=== PATIENT | male | born 1965 | race African-American/Black ===

== ENCOUNTER 2019-02-16 10:44 | Inpatient (IN) | payer OTHER ==
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
[2019-02-16] MEDS ORDERED: DICYCLOMINE HCL 10 MG CAPSULE PO PRN (13:50)
[2019-02-16] MEDS ORDERED: MAG HYDROX/AL HYDROX/SIMETH 30 ML UNIT-DOSE CUP PO PRN (13:50)
[2019-02-16] MEDS ORDERED: hydrOXYzine PAMOATE 25 MG CAPSULE (FP) PO PRN (13:50)
[2019-02-16] MEDS ORDERED: MAGNESIUM HYDROX 2400MG/30ML ORAL SUSPENSION 30 ML CUP PO PRN (13:50)
[2019-02-16] MEDS ORDERED: MENTHOL/PHENOL 1 EACH UD MM PRN (13:50)
[2019-02-16] MEDS ORDERED: ACETAMINOPHEN 325 MG TABLET (FP) PO PRN ×2 (13:50)
[2019-02-16] MEDS ORDERED: chlordiazePOXIDE HCL 25 MG CAPSULE PO PRN (13:50)
[2019-02-16] MEDS ORDERED: cloNIDine HCL 0.1 MG TABLET PO PRN (13:50)
[2019-02-16] MEDS ORDERED: NICOTINE POLACRILEX 4 MG GUM BUC PRN (13:50)
[2019-02-16] MEDS ORDERED: IBUPROFEN 400 MG TABLET (FP) PO PRN (13:50)
[2019-02-16] MEDS ORDERED: MAGNESIUM CITRATE 300 ML BOTTLE PO PRN (13:50)
[2019-02-16] MEDS ORDERED: BACLOFEN 10 MG TABLET (FP) PO PRN (13:50)
[2019-02-16] MEDS ORDERED: ONDANSETRON *ODT* 4 MG TABLET SL PRN (13:50)
[2019-02-16] MEDS ORDERED: ALBUTEROL SO4 8 GM HFA INHALER IH PRN (13:57)
[2019-02-16] MEDS ORDERED: chlordiazePOXIDE HCL 25 MG CAPSULE PO ONE (14:16)
[2019-02-16] MEDS ORDERED: METHADONE HCL 10 MG TABLET (FOR DETOX USE ONLY) PO ONE ×2 (14:20→23:00)
[2019-02-16 16:50] LABS: HEMATOCRIT 39.3 % (35.4-49); MCH 28.2 pg (25.7-33.7); MCHC 33.1 g/dl (32.0-35.9); MEAN CELL VOLUME 85.1 fl (80-96); MEAN PLT VOLUME 7.8 fl (7.5-11.1); PLATELET COUNT 280 K/MM3 (134-434); RBC 4.62 M/mm3 (4.00-5.60); RDW 15.5 % (11.9-15.9); WHITE BLOOD COUNT 7.6 K/mm3 (4.0-10.0)
[2019-02-16 16:52] LABS: ALBUMIN 3.8 g/dl (3.4-5.0); ALK PHOS 118 U/L (45-117); ANION GAP 7 MMOL/L (8-16); BILIRUBIN,TOTAL 0.3 mg/dL (0.2-1); BLOOD UREA NITROGEN 11 mg/dL (7-18); CALCIUM 9.6 mg/dL (8.5-10.1); CHLORIDE 99 mmol/L (98-107); CO2 32 mmol/L (21-32); CREATININE 0.7 mg/dL (0.55-1.3); GLUCOSE,RANDOM 101 mg/dL (74-106); POTASSIUM 4.1 mmol/L (3.5-5.1); SGOT/AST 29 U/L (15-37); SGPT/ALT 39 U/L (13-61); SODIUM 138 mmol/L (136-145); TOT PROT 7.8 g/dl (6.4-8.2)
[2019-02-16] MEDS: chlordiazePOXIDE HCL 25 MG CAPSULE PO SCH (22:54)
[2019-02-16] MEDS: GABAPENTIN 300 MG CAPSULE (FP) PO SCH (22:54)
[2019-02-16] MEDS: THIAMINE HCL 100 MG TABLET (FP) PO SCH (22:56)
[2019-02-17] MEDS: chlordiazePOXIDE HCL 25 MG CAPSULE PO SCH ×4 (06:00→22:49)
[2019-02-17] MEDS ORDERED: guaiFENesin/CODEINE 10 ML UNIT-DOSE CUPS PO PRN (07:47)
[2019-02-17] MEDS ORDERED: METHADONE HCL 10 MG TABLET (FOR DETOX USE ONLY) PO ONE (10:00)
[2019-02-17] MEDS: GABAPENTIN 300 MG CAPSULE (FP) PO SCH ×2 (10:09→22:49)
[2019-02-17] MEDS: PRENATAL VITAMINS W/ FOLIC ACID TABLET (FP) PO SCH (10:09)
[2019-02-17] MEDS: NICOTINE 21 MG/24 HOURS TOPICAL PATCH TD SCH (10:11)
--- NOTE | 2019-02-17 13:36 | PN ---
S CIWA - CIWA Score Nausea/Vomitin-No Nausea/No Vomiting Muscle Tremors: 4-Moderate,w/Arms Extend Anxiety: 4-Mod. Anxious/Guarded Agitation: 4-Moderately Restless Paroxysmal Sweats: 3 Orientation: 0-Oriented Tacttile Disturbances: 0-None Auditory Disturbances: 0-None Visual Disturbances: 0-None Headache: 0-None Present CIWA-Ar Total Score: 15 [facility] COWS - Scale Resting Pulse: 0= [place] 80 or Below Sweatin=Flushed/Facial Moisture Restless Observation: 1= Difficult to Sit Still Pupil Size: 0= Normal to Room Light Bone or Joint Aches: 2= Severe Diffuse Aches Runny Nose/ Eye Tearin= Runny Nose/Eyes GI Upset > 30mins: 0= None Tremor Observation of Outstretched Hands: 2= Slight Tremor Visible Yawning Observation: 2= >3x During Session Anxiety or Irritability: 2=Irritable/Anxious Goose Flesh Skin: 0=Smooth Skin COWS Score: 13 S Progress Note (SOAP) Subjective: anxiety body aches sweats shakes Objective: 02/17/19 13:36 Vital Signs Temperature 97.9 F 02/17/19 09:52 Pulse Rate 77 02/17/19 09:52 Respiratory Rate 21 H 02/17/19 09:52 Blood Pressure 137/64 02/17/19 09:52 O2 Sat by Pulse Oximetry (%) Laboratory Tests 02/16/19 02/16/19 02/16/19 14:40 14:40 14:40 WBC 7.6 RBC 4.62 Hgb 13.0 Hct 39.3 MCV 85.1 MCH 28.2 MCHC 33.1 RDW 15.5 Plt Count 280 MPV 7.8 Sodium 138 Potassium 4.1 Chloride 99 Carbon Dioxide 32 Anion Gap 7 L BUN 11 Creatinine 0.7 Creat Clearance w eGFR 117.52 Random Glucose 101 Calcium 9.6 Total Bilirubin 0.3 AST 29 ALT 39 Alkaline Phosphatase 118 H Total Protein 7.8 Albumin 3.8 RPR Titer Nonreactive aaox3 ambulating no acute distress Assessment: 02/17/19 13:36 withdrawal sx Plan: continue detox increase fluids
--- NOTE | 2019-02-17 15:21 | EKG ---
Test Reason : Blood Pressure : / mmHG Vent. Rate : 060 BPM Atrial Rate : 060 BPM P-R Int : 168 ms QRS Dur : 088 ms QT Int : 414 ms P-R-T Axes : 068 052 013 degrees QTc Int : 414 ms NORMAL SINUS RHYTHM NORMAL ECG NO PREVIOUS ECGS AVAILABLE Confirmed by SHAILA BUCHANAN MD ([id number]) on 02/17/2019 3:20:38 PM Referred By: Confirmed By:SHAILA BUCHANAN MD
[2019-02-17] MEDS ORDERED: guaiFENesin 200 MG/10 ML 10 ML UNIT-DOSE CUPS PO PRN (15:31)
[2019-02-17] MEDS: THIAMINE HCL 100 MG TABLET (FP) PO SCH (22:49)
[2019-02-17] MEDS: P-EPHED 60MG/TRIPROLIDI 2.5MG TABLET PO PRN (22:51)
[2019-02-18] MEDS: chlordiazePOXIDE HCL 25 MG CAPSULE PO SCH ×3 (06:26→17:40)
[2019-02-18] MEDS: P-EPHED 60MG/TRIPROLIDI 2.5MG TABLET PO PRN (06:28)
[2019-02-18] MEDS ORDERED: METHADONE HCL 10 MG TABLET (FOR DETOX USE ONLY) PO ONE (10:00)
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
[2019-02-18] MEDS: GABAPENTIN 300 MG CAPSULE (FP) PO SCH ×2 (11:23→22:21)
[2019-02-18] MEDS: PRENATAL VITAMINS W/ FOLIC ACID TABLET (FP) PO SCH (11:24)
--- NOTE | 2019-02-18 12:33 | PN ---
[facility] CIWA - CIWA Score Nausea/Vomitin-No Nausea/No Vomiting Muscle Tremors: 1-None Visible, but [place] Anxiety: 4-Mod. Anxious/Guarded Agitation: 4-Moderately Restless Paroxysmal Sweats: 2 Orientation: 0-Oriented Tacttile Disturbances: 0-None Auditory Disturbances: 0-None Visual Disturbances: 0-None Headache: 0-None Present CIWA-Ar Total Score: 11 [facility] COWS - Scale Resting Pulse: 0= [place] 80 or Below Sweatin= Chills/Flushing Restless Observation: 1= Difficult to Sit Still Pupil Size: 1= Pupils >than Normal Bone or Joint Aches: 1= Mild Discomfort Runny Nose/ Eye Tearin= None GI Upset > 30mins: 0= None Tremor Observation of Outstretched Hands: 2= Slight Tremor Visible Yawning Observation: 0= None Anxiety or Irritability: 2=Irritable/Anxious Goose Flesh Skin: 0=Smooth Skin COWS Score: 8 S Progress Note (SOAP) Subjective: patient c/o feeling sad, anxiety, restless, chills and sweating Objective: 02/18/19 12:32 02/16/19 02/16/19 02/16/19 14:40 14:40 14:40 WBC 7.6 RBC 4.62 Hgb 13.0 Hct 39.3 MCV 85.1 MCH 28.2 MCHC 33.1 RDW 15.5 Plt Count 280 MPV 7.8 Sodium 138 Potassium 4.1 Chloride 99 Carbon Dioxide 32 Anion Gap 7 L BUN 11 Creatinine 0.7 Creat Clearance w eGFR 117.52 Random Glucose 101 Calcium 9.6 Total Bilirubin 0.3 AST 29 ALT 39 Alkaline Phosphatase 118 H Total Protein 7.8 Albumin 3.8 RPR Titer Nonreactive Vital Signs Temperature 97.2 F L 02/18/19 09:38 Pulse Rate 81 02/18/19 09:38 Respiratory Rate 18 02/18/19 09:38 Blood Pressure 126/90 02/18/19 09:38 O2 Sat by Pulse Oximetry (%) pe: alert and oriented x 3 skin warm, +facial moisture/flushing ext full rom, amb ad harris anxious restless depressed affect Assessment: 02/18/19 12:30 Laboratory Tests 02/16/19 02/16/19 02/16/19 14:40 14:40 14:40 WBC 7.6 RBC 4.62 Hgb 13.0 Hct 39.3 MCV 85.1 MCH 28.2 MCHC 33.1 RDW 15.5 Plt Count 280 MPV 7.8 Sodium 138 Potassium 4.1 Chloride 99 Carbon Dioxide 32 Anion Gap 7 L BUN 11 Creatinine 0.7 Creat Clearance w eGFR 117.52 Random Glucose 101 Calcium 9.6 Total Bilirubin 0.3 AST 29 ALT 39 Alkaline Phosphatase 118 H Total Protein 7.8 Albumin 3.8 RPR Titer Nonreactive Vital Signs Temperature 97.2 F L 02/18/19 09:38 Pulse Rate 81 02/18/19 09:38 Respiratory Rate 18 02/18/19 09:38 Blood Pressure 126/90 02/18/19 09:38 O2 Sat by Pulse Oximetry (%) pe: alert and oriented x 3 skin warm, +facial moisture/flushing ext full rom, amb ad harris anxious restless depressed affect a/p withdrawal sx Plan: continue detox encourage fluids continue to monitor
[2019-02-18] MEDS: NICOTINE 21 MG/24 HOURS TOPICAL PATCH TD SCH (13:48)
[2019-02-18] MEDS: MIRTAZAPINE 15 MG TABLET (FP) PO SCH (22:21)
[2019-02-18] MEDS: THIAMINE HCL 100 MG TABLET (FP) PO SCH (22:21)
[2019-02-18] MEDS: chlordiazePOXIDE HCL 10 MG CAPSULE PO SCH (22:22)
[2019-02-18] MEDS: MELATONIN 5 MG TABLETS PO PRN (22:23)
[2019-02-18] MEDS ORDERED: chlordiazePOXIDE HCL 10 MG CAPSULE PO PRN (23:00)
[2019-02-19] MEDS: chlordiazePOXIDE HCL 10 MG CAPSULE PO SCH ×3 (05:51→18:27)
[2019-02-19] MEDS ORDERED: METHADONE HCL 10 MG TABLET (FOR DETOX USE ONLY) PO ONE (10:00)
[2019-02-19] MEDS: PRENATAL VITAMINS W/ FOLIC ACID TABLET (FP) PO SCH (10:12)
[2019-02-19] MEDS: NICOTINE 21 MG/24 HOURS TOPICAL PATCH TD SCH (10:12)
[2019-02-19] MEDS: GABAPENTIN 300 MG CAPSULE (FP) PO SCH ×2 (10:12→22:16)
--- NOTE | 2019-02-19 10:45 | PN ---
[facility] CIWA - CIWA Score Nausea/Vomitin-No Nausea/No Vomiting Muscle Tremors: 3 Anxiety: 2 Agitation: 2 Paroxysmal Sweats: 2 Orientation: 0-Oriented Tacttile Disturbances: 0-None Auditory Disturbances: 0-None Visual Disturbances: 0-None Headache: 0-None Present CIWA-Ar Total Score: 9 S COWS - Scale Resting Pulse: 1= [place] 81-100 Sweatin=Flushed/Facial Moisture Restless Observation: 0= Sits Still Pupil Size: 0= Normal to Room Light Bone or Joint Aches: 2= Severe Diffuse Aches Runny Nose/ Eye Tearin= Nasal Congestion GI Upset > 30mins: 0= None Tremor Observation of Outstretched Hands: 1= Tremor [place], Not Seen Yawning Observation: 0= None Anxiety or Irritability: 2=Irritable/Anxious Goose Flesh Skin: 0=Smooth Skin COWS Score: 9 [facility] Progress Note (SOAP) Subjective: anxiety sweats body aches interrupted sleep Objective: 02/19/19 10:45 Vital Signs Temperature 97.5 F L 02/19/19 09:16 Pulse Rate 83 02/19/19 09:16 Respiratory Rate 18 02/19/19 09:16 Blood Pressure 128/64 02/19/19 09:16 O2 Sat by Pulse Oximetry (%) aaox3 ambulating no acute distress Assessment: 02/19/19 10:45 mild withdrawal sx Plan: continue detox increase fluids
--- NOTE | 2019-02-19 11:47 | PN ---
[facility] Progress Note Note: pt requested a reduction of his librium because he has an opportunity to go to [facility] inpatient rehab for continued treatment.pt will continue with modified detox regimen and d/c tomorrow morning at 7am. it has been arranged for pt to have rehab pick him up from home as per pt and his counselor.
[2019-02-19] MEDS: MELATONIN 5 MG TABLETS PO PRN (22:16)
[2019-02-19] MEDS: MIRTAZAPINE 15 MG TABLET (FP) PO SCH (22:16)
[2019-02-19] MEDS: THIAMINE HCL 100 MG TABLET (FP) PO SCH (22:16)
[2019-02-19] MEDS ORDERED: chlordiazePOXIDE HCL 10 MG CAPSULE PO SCH (23:00)
[2019-02-20] MEDS ORDERED: METHADONE HCL 5 MG TABLET (FOR DETOX USE ONLY) PO ONE (06:00)
[2019-02-20] MEDS ORDERED: chlordiazePOXIDE HCL 10 MG CAPSULE PO ONE (06:00)
[2019-02-20 06:39] VITALS: BP 137/75; PULSE 77; TEMP 97.5
== END 2019-02-20 06:25 | disposition home or self-care (01) | DRG 773 ==
LOC: YASAS 10:44 → Y6N 14:04
PROVIDERS: ADMIT Surgery; ATTEND Surgery
PROC: HZ2ZZZZ Detoxification Services for Substance Abuse Treatment (ICD-10-PCS; principal; 2019-02-16)
DX: F11.23 Opioid dependence with withdrawal (principal); F10.230 Alcohol dependence with withdrawal, uncomplicated; F32.9 Major depressive disorder, single episode, unspecified; G62.9 Polyneuropathy, unspecified; J45.20 Mild intermittent asthma, uncomplicated; E78.00 Pure hypercholesterolemia, unspecified
CPT/HCPCS: 36415; 80053; 85027; 86593; 93005; 93010; J0475; J0735